=== PATIENT | male | born 1955 | race Caucasian/White ===

== ENCOUNTER 2020-03-28 11:46 | Inpatient (IN) | payer OTHER, MEDICARE ==
[~2020-03-28] VITALS: Ht 177.8 cm; Wt 131.5 kg
[~2020-03-28 11:46] MED LIST: CELEXA40 MG PO; NORVASC10 MG PO; WELLBUTRIN SR200 MG PO
[2020-03-28 12:44] LABS: HEMOGLOBIN 15.1 gm/dl (14.0-17.5); RED BLOOD COUNT 5.33 M/UL (4.20-5.50); WHITE BLOOD COUNT 12.2 K/UL (4.5-11.0)
[2020-03-28 13:07] LABS: BUN/CREATININE RATIO 25 (0-10)
[2020-03-28] MEDS ORDERED: VALSARTAN-HCTZ1 EAC3 PO (16:16)
[2020-03-28] MEDS ORDERED: SYNJARDY XR PO (16:17)
[2020-03-28] MEDS ORDERED: TRESIBA FL100 UNIT/1 SC (16:18)
[2020-03-28] MEDS ORDERED: OZEMPIC0.25 MG/0. SQ (16:18)
[2020-03-28] MEDS ORDERED: DEPAKOTE250 MG PO (16:19)
[2020-03-28] MEDS ORDERED: ZOCOR10 MG PO (16:20)
[2020-03-28] MEDS ORDERED: SEROQUEL25 MG PO (16:20)
[2020-03-28] MEDS ORDERED: MULTIVITAMIN1 EACH PO (16:21)
[2020-03-28] MEDS ORDERED: VITAMIN D325 MCG PO (16:22)
[2020-03-29 06:25] LABS: HEMOGLOBIN 13.4 gm/dl (14.0-17.5); RED BLOOD COUNT 4.84 M/UL (4.20-5.50); WHITE BLOOD COUNT 9.2 K/UL (4.5-11.0)
[2020-03-29 06:44] LABS: BUN/CREATININE RATIO 26 (0-10)
[2020-03-29 13:15] LABS: BORDETELLA PARAPERTUSSIS Not Detected (Not Detectd); BORDETELLA PERTUSSIS Not Detected (Not Detectd); CHLAMYDIA PNEUMONIAE Not Detected (Not Detectd); CORONAVIRUS HKU1 Not Detected (Not Detectd); CORONAVIRUS NL63 Not Detected (Not Detectd); CORONAVIRUS OC43 Not Detected (Not Detectd); CORONOAVIRUS 229E Not Detected (Not Detectd); HUMAN METAPNEUMOVIRUS Not Detected (Not Detectd); HUMAN RHINOVIRUS/ENTEROVIRUS Not Detected (Not Detectd); INFLUENZA A Not Detected (Not Detectd); INFLUENZA B Not Detected (Not Detectd); MYCOPLASMA PNEUMONIAE Not Detected (Not Detectd); PARAINFLUENZA VIRUS 1 Not Detected (Not Detectd); PARAINFLUENZA VIRUS 2 Not Detected (Not Detectd); PARAINFLUENZA VIRUS 3 Not Detected (Not Detectd); PARAINFLUENZA VIRUS 4 Not Detected (Not Detectd); RESPIRATORY SYNCYTIAL VIRUS Not Detected (Not Detectd)
[2020-03-29 14:12] LABS: SARS-CoV-2 NOT DETECTED (Not Detectd)
[2020-03-30 06:30] LABS: HEMOGLOBIN 13.6 gm/dl (14.0-17.5); RED BLOOD COUNT 4.89 M/UL (4.20-5.50); WHITE BLOOD COUNT 7.5 K/UL (4.5-11.0)
[2020-03-30 06:45] LABS: BUN/CREATININE RATIO 25 (0-10)
[2020-03-31 06:20] LABS: BUN/CREATININE RATIO 29 (0-10)
[2020-03-31 06:31] LABS: RED BLOOD COUNT 4.83 M/UL (4.20-5.50)
[2020-04-01 02:36] LABS: HEMOGLOBIN 13.4 gm/dl (14.0-17.5); RED BLOOD COUNT 4.84 M/UL (4.20-5.50); WHITE BLOOD COUNT 9.7 K/UL (4.5-11.0)
[2020-04-01 03:32] LABS: BUN/CREATININE RATIO 29 (0-10)
[2020-04-02 03:38] LABS: HEMOGLOBIN 13.4 gm/dl (14.0-17.5); RED BLOOD COUNT 4.89 M/UL (4.20-5.50)
[2020-04-02 03:48] LABS: BUN/CREATININE RATIO 31 (0-10)
--- NOTE | 2020-04-02 17:22 | NUR ---
CALLED DR AMEZQUITA REGARDING MD WANTED PATIENT TO TRY TO GO FROM [facility] TO [facility] TO SEE IF HE CAN BE TITRATED DOWN. RESPIRATORY THERAPIST NOTIFIED OF DR AMEZQUITA'S REQUEST AND WHEN THE PATIENT WAS PLACED ON [facility] AT 11 LITERS HE BEGAN TO DESAT AND O2 SAT GOT DOWN TO 82 PERCENT. PATIENT WAS PLACED BACK ON [facility] AND HIS O2 SAT STARTED TO COME BACK UP AND IS NOW 92 PERCENT. NO NEW ORDERS NOTED AT THIS TIME. MADE AWARE.
[2020-04-03 15:10] LABS: ORGANISM ID Not indicated. (.); SPECIMEN SOURCE Urine (.); STREPTOCOCCUS PNEUMONIAE AG Negative (Negative)
[2020-04-04 03:32] LABS: HEMOGLOBIN 13.9 gm/dl (14.0-17.5); RED BLOOD COUNT 5.05 M/UL (4.20-5.50); WHITE BLOOD COUNT 8.7 K/UL (4.5-11.0)
[2020-04-04 03:52] LABS: BUN/CREATININE RATIO 21 (0-10)
[2020-04-05 03:40] LABS: RED BLOOD COUNT 5.03 M/UL (4.20-5.50); WHITE BLOOD COUNT 8.3 K/UL (4.5-11.0)
[2020-04-05 04:07] LABS: BUN/CREATININE RATIO 21 (0-10)
[2020-04-07 04:21] LABS: BUN/CREATININE RATIO 16 (0-10)
[2020-04-07] MEDS ORDERED: FUROSEMIDE40 MG PO (10:46)
[2020-04-07] MEDS ORDERED: VALSARTAN80 MG PO (10:46)
--- NOTE | 2020-04-07 12:18 | NUR ---
PATIENT SATS 87% ON ROOM AIR AT REST
== END 2020-04-07 13:52 | disposition home or self-care (01) | DRG 871 ==
LOC: ER1 11:46 → PROG CARE 15:43 → CCU 15:43 → CDU 15:43 → CCU 19:11 → PROG CARE 03-31 13:06
PROVIDERS: Emergency Medicine; Internal Medicine; ADMIT Internal Medicine
PROC: 5A09457 Assistance with Respiratory Ventilation, 24-96 Consecutive Hours, Continuous Positive Airway Pressure (ICD-10-PCS; principal; 2020-03-28)
DX: A41.9 Sepsis, unspecified organism (principal); R65.20 Severe sepsis without septic shock; J18.9 Pneumonia, unspecified organism; J96.01 Acute respiratory failure with hypoxia; I50.31 Acute diastolic (congestive) heart failure; I16.1 Hypertensive emergency; E66.2 Morbid (severe) obesity with alveolar hypoventilation; Z68.41 Body mass index [BMI] 40.0-44.9, adult; I11.0 Hypertensive heart disease with heart failure; Z20.828 Contact with and (suspected) exposure to other viral communicable diseases; E11.9 Type 2 diabetes mellitus without complications; F31.9 Bipolar disorder, unspecified; Z87.891 Personal history of nicotine dependence; Z88.0 Allergy status to penicillin; Z79.84 Long term (current) use of oral hypoglycemic drugs
CPT/HCPCS: ECHO; 36415; 36600; 71045; 71046; 71275; 80048; 80053; 82550; 82553; 82728; 82803; 82962; 83605; 83615; 83735; 83874; 83880; 84132; 84484; 85025; 85379; 86738; 87040; 87070; 87081; 87205; 87278; 87633; 87880; 87899; 93005; 93306; 94640; 94660; 94760; 96365; 96366; 96367; 96368; 96375; 97116-GP-CQ; 97162; 99285; J0456; J0692; J0696; J1100; J1205; J1650; J1940; J7030; Q9967; U0002; U0003

== ENCOUNTER → 2020-05-08 | Outpatient (CLI) | payer OTHER, MEDICARE ==
[~2020-05-08] MED LIST changes: +DEPAKOTE250 MG PO; +FUROSEMIDE40 MG PO; +MULTIVITAMIN1 EACH PO; +OZEMPIC0.25 MG/0. SQ; +SEROQUEL25 MG PO; +SYNJARDY XR PO; +TRESIBA FL100 UNIT/1 SC; +VALSARTAN-HCTZ1 EAC3 PO; +VALSARTAN80 MG PO; +VITAMIN D325 MCG PO; +ZOCOR10 MG PO
== END ==
LOC: LAB 15:42
DX: R09.02 Hypoxemia (principal)
CPT/HCPCS: 36600; 82803

== ENCOUNTER → 2020-05-08 | Outpatient (CLI) | payer OTHER | LOC: EXRD 14:27 | DX: Z87.01 Personal history of pneumonia (recurrent) (principal); J98.11 Atelectasis | CPT/HCPCS: 71046 ==

== ENCOUNTER → 2020-06-30 | Outpatient (CLI) | payer OTHER, MEDICARE | LOC: SLEEP 21:30 | DX: G47.33 Obstructive sleep apnea (adult) (pediatric) (principal) | CPT/HCPCS: 95810 ==